=== PATIENT | female | born 1995 | race Asian ===

== ENCOUNTER 2018-02-09 21:25 | Emergency (ER) | payer OTHER ==
[2018-02-09] MEDS ORDERED: ANAPHYLAXIS KIT 1 EA ONE (21:37)
--- NOTE | 2018-02-09 21:53 | ER Report ---
History and Physical Time Seen By MD: 21:53 Hx. of Stated Complaint: GENERALIZED RED ITCHY RASH, INITIALLY TIGHTNESS IN CHEST HPI/ROS CHIEF COMPLAINT: Itchy rash and trouble breathing HISTORY OF PRESENT ILLNESS: This is a 22-year-old female. She has an itchy rash over her whole body. Started earlier tonight. She thinks it may have been something she ate but she does not know for sure. Slight trouble breathing with some shortness of breath but no trouble swallowing and no swelling of the lips or tongue. No new soaps, detergents, etc. No fevers or chills or recent illness. Allergies: Coded Allergies: Penicillins (Verified Allergy, Unknown, 02/09/18) Home Meds Active Scripts Prednisone (PREDNISONE) 20 Mg Tablet, 40 MG PO QDAY, #4 TAB 1 Refill Prov:VINOD SAMUELS MD 02/09/18 Reviewed Nurses Notes: Yes Constitutional Vital Sign - Last 24 Hours 02/09/18 21:30 Temp 98.4 Pulse 93 Resp 16 B/P (MAP) 128/91 Pulse Ox 92 O2 Delivery Room Air Physical Exam General Appearance: Alert, no acute distress Eyes: Pupils equal and round no injection. ENT: Normal oral mucosa. Moist mucous membranes. No swelling of the lips or tongue. Normal posterior oropharynx. Neck: Neck is supple and non tender. Respiratory: Chest is non tender, lungs are clear to auscultation. Cardiac: regular rate and rhythm Neuro: Alert and oriented 3, no focal neurologic deficits. Musculoskeletal: Extremities have full range of motion. Skin: Red macular rash over the whole body with associated itching and excoriation DIFFERENTIAL DIAGNOSIS: After history and physical exam differential diagnosis was considered for allergic reaction, uncertain etiology. Medical Decision Making ED Course/Re-evaluation Clinical Indication for ER IV: Hydration, IV Access ED Course The rash is totally resolved after IV Benadryl, Solu-Medrol, and Pepcid as well as a liter of normal saline. Decision to Disposition Date: Feb 09, 2018 Decision to Disposition Time: 22:55 Depart Departure Latest Vital Signs Vital Signs Date Time Temp Pulse Resp B/P (MAP) Pulse Ox O2 Delivery O2 Flow Rate FiO2 02/09/18 21:30 98.4 93 16 128/91 92 Room Air Impression: Primary Impression: Rash due to allergy Condition: Improved Disposition: HOME OR SELF-CARE New Scripts Prednisone (PREDNISONE) 20 Mg Tablet 40 MG PO QDAY, #4 TAB 1 Refill Prov: VINOD SAMUELS MD 02/09/18 Patient Instructions: General Allergic Reaction (ED) Additional Instructions: Take Benadryl 25mg over the counter tablets, one every 6hours as needed for rash and itching. Pepcid 20mg over the counter tablets, one every 12 hours. Prednisone 20mg tablets, 2 tablets once a day for 3 days. VINOD SAMUELS MD Feb 09, 2018 21:53
[2018-02-09] MEDS ORDERED: methylPREDNIS SUCC 125 MG/2ML IVP ONE (22:00)
[2018-02-09] MEDS ORDERED: FAMOTIDINE(*) 20MG/50ML PREMIX 50 ML IVPB ONE (22:00)
[2018-02-09] MEDS ORDERED: diphenhydrAMINE 50 MG/ML VIAL IVP ONE (22:00)
[2018-02-09] MEDS ORDERED: NS(*) 0.9% 1000 ML BAG 1,000 ML IV ONE (22:00)
[2018-02-09] MEDS ORDERED: PRED20TA6 PO (22:57)
[2018-02-09 23:00] VITALS: BP 113/71
[2018-02-09] MEDS ORDERED: predniSONE 20 MG TAB PO ONE (23:00)
== END 2018-02-09 23:30 | disposition home or self-care (01) ==
LOC: ER 21:54
DX: T78.40XA Allergy, unspecified, initial encounter (principal); R21 Rash and other nonspecific skin eruption
CPT/HCPCS: 96365; 96375; 99284; J1200; J2930; J3490; J7030; J7512